=== PATIENT | female | born 1975 | race Caucasian/White ===

== ENCOUNTER 2020-10-24 19:20 | Inpatient (IN) | payer BC, SELFPAY ==
[~2020-10-24] VITALS: Ht 157.5 cm; Wt 140.4 kg
--- NOTE | 2020-10-24 19:34 | NUR ---
Placed in room 5 . Placed on quality assurance monitor, blood pressure machine and pulse oximeter. To gown for exam. Side rails up. Report given to CHENG Brink.
[2020-10-24 19:35] VITALS: BP_SYST 127
--- NOTE | 2020-10-24 19:40 | NUR ---
DR. SIMPSON AT BEDSIDE FOR EVALUATION.
--- NOTE | 2020-10-24 19:41 | NUR ---
PATIENT AAOX4 FROM HOME BIB BLS FOR SHORTNESS OF BREATH. PATIENT STATED TESTING POSITIVE FOR COVID 19 ON SUNDAY WITH + EXPOSURE AT HOME. STARTED FEELING SOB AT HOME ABOUT 2 HR. CURRENTLY HAVING HEADACHE 6/10 ON THE PAIN SCALE. CURRENTLY ON 6L NC O2 SAT @95%. VSS.
--- NOTE | 2020-10-24 19:55 | NUR ---
Blood for labwork drawn by tech . Patient tolerated well.
[2020-10-24 20:21] LABS: BASOPHILS % (AUTO) 0.3 % (0.0-2.0); HEMATOCRIT 42.2 % (36-48); HEMOGLOBIN 14.4 g/dL (12.0-16.0); LYMPHOCYTES # (AUTO) 0.9 K/uL (1.0-5.5); LYMPHOCYTES % (AUTO) 26.7 % (20.5-51.5); MEAN CORPUSCULAR HEMOGLOBIN 29 pg (27-31); MEAN CORPUSCULAR HGB CONC 34 % (32-36); MEAN CORPUSCULAR VOLUME 85 fL (79.0-98.0); MONOCYTES # (AUTO) 0.4 K/uL (0.0-1.0); MONOCYTES % (AUTO) 11.5 % (1.7-9.3); NEUTROPHILS # (AUTO) 2.1 K/uL (1.8-7.7); NEUTROPHILS % (AUTO) 61.5 % (40.0-70.0); PLATELET COUNT (AUTO) 158 K/uL (130-430); RED BLOOD CELL COUNT(AUTO) 4.99 MIL/uL (4.2-6.2); RED CELL DISTRIBUTION WIDTH 13.7 % (9.0-15.0); WHITE BLOOD COUNT (AUTO) 3.4 K/uL (4.8-10.8)
[2020-10-24] MEDS ORDERED: DECADRON 4 MG TABLET PO SCH (20:30)
--- NOTE | 2020-10-24 20:34 | NUR ---
PORTABLE XRAY DONE AT THIS TIME.
[2020-10-24 20:41] LABS: ANION GAP 12 (5-15); CALCIUM 8.8 mg/dL (8.4-11.0); CHLORIDE 98 mmol/L (98-107); GLUCOSE 236 mg/dL (70-99); POTASSIUM 3.9 mmol/L (3.5-5.1); SODIUM SERUM 135 mmol/L (136-145)
[2020-10-24 20:42] LABS: ALANINE AMINOTRANSFERASE 130 U/L (12-78); ASPARTATE AMINOTRANSFERASE 116 U/L (10-37); BILIRUBIN,DIRECT 0.2 mg/dL (0.0-0.3); GFR AFRICAN AMERICAN 99 mL/min (>90); TOTAL BILIRUBIN 0.5 mg/dL (0.0-1.0); UREA NITROGEN, BLOOD 7 mg/dL (8-21)
[2020-10-24 20:43] LABS: ALBUMIN 3.1 g/dL (3.4-4.8); C-REACTIVE PROTEIN QUANT 7.6 mg/dL (0-0.5); LACTATE DEHYDROGENASE 325 U/L (81-234); LIPASE 200 U/L (73-393)
[2020-10-24] MEDS ORDERED: ALBMDI INH (21:56)
[2020-10-24] MEDS ORDERED: METF-518 PO (21:56)
[2020-10-24] MEDS ORDERED: SIMV10TA2 PO (21:56)
[2020-10-24] MEDS ORDERED: LEVO750T45 PO (21:56)
[2020-10-24] MEDS ORDERED: BENA40TA8 PO (21:56)
[2020-10-24] MEDS ORDERED: METO-544 PO (21:56)
[2020-10-24] MEDS ORDERED: SEMA14TA PO (21:56)
--- NOTE | 2020-10-24 21:56 | NUR ---
Medication reconciliation completed with information provided by PATIENT. Any prior medication reconciliation on file was reviewed and corrected.
[2020-10-24] MEDS ORDERED: ACETAMINOPHEN 325 MG TABLET PO PRN (22:00)
[2020-10-24] MEDS ORDERED: cefTRIAXone 1 GM IVPB PREMIX 50 ML IV SCH (22:00)
[2020-10-24] MEDS ORDERED: AZITHROMYCIN 500 MG in NS 250 ML IV SCH (22:00)
--- NOTE | 2020-10-24 22:39 | NUR ---
Patient will be admitted to care of [facility]. Admitted to TELE unit. ROOM ASSIGNMENT PENDING. Belongings list completed. Complete and up to date summary report printed. SBAR report to be given at bedside with opportunity for questions.
--- NOTE | 2020-10-24 22:43 | NUR ---
BELONGINGS DONE AT BEDSIDE WITH THE PATIENT.
[2020-10-24 23:38] LABS: BILIRUBIN,URINE NEGATIVE (NEGATIVE); BLOOD, URINE 1+ (NEGATIVE); COLOR,URINE YELLOW (YELLOW); GLUCOSE,URINE NEGATIVE (NEGATIVE); KETONES,URINE 1+ (NEGATIVE); LEUKOCYTE ESTERASE ,URINE NEGATIVE (NEGATIVE); NITRITE, URINE NEGATIVE (NEGATIVE); PROTEIN URINE 2+ (NEGATIVE); UROBILINOGEN,URINE 0.2 (0.2-1.0)
[2020-10-24 23:40] LABS: CLARITY/URINE SLIGHTLY CLOUDY (CLEAR)
[2020-10-24 23:46] LABS: BACTERIA,URINE FEW /HPF (None Seen); WBC,URINE 0-3 /HPF (0-3)
--- NOTE | 2020-10-24 23:49 | NUR ---
Patient's code status is FULL CODE paperwork completed and placed in chart.
[2020-10-25] MEDS ORDERED: AZITHROMYCIN 500 MG/VIAL (ZITHROMAX) IV ONE (00:03)
[2020-10-25] MEDS: 0.45% NACL 1,000 ML IV SCH ×2 (00:36→12:09)
--- NOTE | 2020-10-25 02:15 | NUR ---
Transfer to TELE via ACLS protocol. Licensed nurse present. IV present no signs or symptoms of infiltration.
--- NOTE | 2020-10-25 03:07 | NUR ---
CONSULT: CONSULT CALLED FOR DR. MARNIE Alva SPOKE WITH PHILLIP OVIEDO REASON FOR CONSULT: RASHEEDA TIWARI REQUESTING CONSULT; DR. VRANER OPTICIAN PHONE NUMBER: [phone]
--- NOTE | 2020-10-25 03:20 | NUR ---
ADMISSION NOTE Received patient from ER via gurney. Patient admitted with diagnosis of COVID PNA. Patient is awake, alert, oriented X 4. Patient oriented to hospital room, call light, toileting, pain management and safety-teach back done. Patient informed that HEMANT will be HER nurse and that their room number is 134B. Personal belongings checked and Belongings List documented. Call light within reach.
--- NOTE | 2020-10-25 04:26 | NUR ---
CONSULT: CONSULT CALLED FOR DR. LANDAVERDE I SPOKE WITH RAFIQ OVIEDO REASON FOR CONSULT: COVID PNA REQUESTING CONSULT: DR. VARNER NATIONAL RECRUITER PHONE NUMBER: [phone]
[2020-10-25 05:11] VITALS: BP_SYST 124
[2020-10-25] MEDS: INSULIN REGULAR, HUMAN 100 UNITS/ML, 10 ML VIAL (humuLIN R) SUBCUT PRN ×4 (06:23→21:52)
--- NOTE | 2020-10-25 06:50 | NUR ---
CLOSING NOTE PT IS RESTING IN BED, BREATHING NONLABORED TO 6LNC. COVID [address] IV PATENT INFUSING ON RH#20, NO SIGNS OF INFILTRATION NOTED. SAFETY AND FALL PRECAUTIONS MAINTAINED. WILL ENDORSE TO ARIEL ANAND.
--- NOTE | 2020-10-25 07:10 | NUR ---
Nutrition Update Jules Scale 18 noted. Pt admitted for COVID pneumonia Diet: Cardiac BMI: 56.6 kg/m2 RD to follow per nutrition care standards.
[2020-10-25 08:00] VITALS: BP_SYST 138
--- NOTE | 2020-10-25 08:30 | NUR ---
OPENING NOTES AWAKE, ALERT AND ORIENTED. ON 2 LITERS OF OXYGEN VIA NASAL CANNULA. DENIES ANY SHORTNESS OF BREATH OR PAIN. IV FLUIDS INFUSING WELL. AMBULATED TO THE RESTROOM; REPORTED A DIARRHEA-LIKE BOWEL MOVEMENT. ASSISTED BACK TO BED. FALL AND SAFETY CHECKS DONE. CALL LIGHT WITHIN REACH. WILL MONITOR.
[2020-10-25] MEDS ORDERED: DEXAMETHASONE SOD PHOSPHATE 4 MG/ML VIAL IVP SCH (09:00)
[2020-10-25 12:00] VITALS: BP_SYST 112
--- NOTE | 2020-10-25 13:52 | NUR ---
I received a call from YEVGENIY Moreno at [facility]. He would like to transfer pt to [facility] in [place] if she is medically stable. I gave him information for MD to MD communication. I spoke to the patient who agreed to transfer to [facility] in [place].
[2020-10-25] MEDS ORDERED: ONDANSETRON HCL 4 MG/2 ML VIAL IVP PRN (14:30)
[2020-10-25] MEDS ORDERED: DEXTROSE 50%-WATER 50 ML DISP.SYRIN IVP PRN (14:45)
[2020-10-25] MEDS ORDERED: D5W 1,000 ML IV PRN (14:45)
[2020-10-25] MEDS ORDERED: GLUCOSE (DEXTROSE) ORAL GEL -Adults PO PRN (14:45)
--- NOTE | 2020-10-25 14:55 | NUR ---
NAUSEA COMPLAINED OF NAUSEA. CALLED DR. VARNER; PRESCRIBED ZOFRAN PRN. ADMINISTERED.
[2020-10-25 16:24] VITALS: BP_SYST 130
[2020-10-25] MEDS ORDERED: lisinopriL 20 MG TABLET PO ONE (18:15)
[2020-10-25] MEDS ORDERED: SIMVASTATIN 10 MG TABLET PO ONE (18:15)
[2020-10-25] MEDS ORDERED: ALBUTEROL MDI INHALATION 8 GM INH INH PRN (18:15)
[2020-10-25] MEDS ORDERED: levoFLOXacin 750 MG TABLET PO SCH (18:30)
--- NOTE | 2020-10-25 18:49 | NUR ---
CLOSING NOTES EATING DINNER. SEEN BY DR. DYE AND DR. VARNER AT BEDSIDE. BOTH MD'S ARE AWARE THAT PATIENT IS FOR TRANSFER TO [facility] BECAUSE OF INSURANCE. ALL NEEDS MET. SAFETY CHECKS DONE. CALL LIGHT WITHIN REACH. WILL ENDORSE TO NIGHT NURSE.
[2020-10-25] MEDS ORDERED: metFORMIN HCL 500 MG TABLET PO ONE (19:00)
[2020-10-25 19:09] VITALS: BP_SYST 130
[2020-10-25] MEDS ORDERED: CHOLECALCIFEROL (VITAMIN D3) 5,000 UNIT TABLET PO ONE (19:30)
--- NOTE | 2020-10-25 20:07 | NUR ---
ORDER TO TRANSFER PT TO [facility] BY DR VARNER
--- NOTE | 2020-10-25 20:08 | NUR ---
SPOKE TO [facility] THEY HAVE A BED [address] MORAN, [employer] AT [address] BY [employer] . CALL TO GIVE REPORT AT@[phone]
[2020-10-25] MEDS ORDERED: ASCORBIC ACID 500 MG TABLET PO SCH (21:00)
[2020-10-25] MEDS ORDERED: IVERMECTIN 3 MG TABLET PO ONE (21:00)
[2020-10-25] MEDS ORDERED: ENOXAPARIN SODIUM 40 MG/0.4 ML SYRINGE SUBCUT SCH (21:00)
[2020-10-25] MEDS ORDERED: DOXYCYCLINE HYCLATE 100 MG CAPSULE PO SCH (21:00)
--- NOTE | 2020-10-25 21:08 | NUR ---
GAVE REPORT TO KEATON ANAND AT [facility] SENIOR CLERK NOW AT 10:30
--- NOTE | 2020-10-25 21:13 | NUR ---
CALL FROM [employer] [facility] NOW AT [phone]
[2020-10-25 22:13] VITALS: BP_SYST 117
--- NOTE | 2020-10-25 23:45 | NUR ---
PT TRANSFERRED Report given to KEATON at [phone]. Transfer packet with Transfer Orders and Medication Reconciliation form given to EMT with report. Exitcare provided. [facility] ID band removed, replaced with ID band with pt's name and . All belongings sent with patient. Patient left floor via gurney escorted by EMT in no distress.
[2020-10-26] MEDS ORDERED: metFORMIN HCL 500 MG TABLET PO SCH (08:30)
[2020-10-26] MEDS ORDERED: CHOLECALCIFEROL (VITAMIN D3) 5,000 UNIT TABLET PO SCH (09:00)
[2020-10-26] MEDS ORDERED: SIMVASTATIN 10 MG TABLET PO SCH (09:00)
[2020-10-26] MEDS ORDERED: lisinopriL 20 MG TABLET PO SCH (09:00)
== END 2020-10-25 23:38 | disposition short-term general hospital (02) | DRG 177 ==
LOC: SED 19:20 → STU 22:00
PROVIDERS: ADMIT Internal Medicine; ATTEND Internal Medicine
PROC: XW033E5 Introduction of Remdesivir Anti-infective into Peripheral Vein, Percutaneous Approach, New Technology Group 5 (ICD-10-PCS; principal; 2020-10-25)
DX: U07.1 COVID-19 (principal); J96.01 Acute respiratory failure with hypoxia; J12.82 Pneumonia due to coronavirus disease 2019; I10 Essential (primary) hypertension; E11.9 Type 2 diabetes mellitus without complications; E66.01 Morbid (severe) obesity due to excess calories; Z79.899 Other long term (current) drug therapy
CPT/HCPCS: 36415; 36600; 71045; 80048; 80076; 81000; 82803-TC; 82962; 83615; 83690; 83880; 84484; 85025; 86140; 87040-TC; 93005; 96365; 96367; 99291; G0378; J0456; J0696; J1100; J1650; J1815; J2405; J7050; J8540